=== PATIENT | female | born 1985 | race Caucasian/White ===

== ENCOUNTER 2021-06-21 17:10 | Emergency (ER) | payer OTHER ==
[~2021-06-21] VITALS: Ht 160 cm; Wt 69.8 kg
--- NOTE | 2021-06-21 17:38 | PHYS DOC ---
Past History Past Medical History: UTI Past Surgical History: No Surgical History Alcohol Use: Occasionally General Adult EDM: Chief Complaint: URINARY FREQUENCY HPI: HPI: "..I feel like I have a urinary tract infection... I do not usually get urinary tract infections..." " My mom who is a nurse said I should come in and get checked. .. out..." Patient is a 35 year old female dependent who presents with above hx of dysuria. Patient denies any history of frequent urinary tract infections. Normally healthy. No history immunosuppression. No recent travel outside the [place] area. Patient follows at [facility] for care. Patient has not had any pregnancies. Has an IUD for control. No history of STDs. Patient does give a history of allergy to Keflex and sulfa drugs. Patient normally healthy. is here for continue education. Will be a long-term assignment to [place]. Patient denies any vaginal discharge. Review of Systems: Review of Systems: Constitutional: Denies fever or chills Eyes: Denies change in visual acuity HENT: Denies nasal congestion or sore throat Respiratory: Denies cough or shortness of breath Cardiovascular: Denies chest pain or edema GI: Denies abdominal pain, nausea, vomiting, bloody stools or diarrhea : Complains of dysuria Musculoskeletal: Denies back pain or joint pain Integument: Denies rash Neurologic: Denies headache, focal weakness or sensory changes Endocrine: Denies polyuria or polydipsia Lymphatic: Denies swollen glands Psychiatric: Denies depression or anxiety Family History: Family History: Noncontributory to presentation Current Medications: Current Meds: See nursing for home meds Allergies: Allergies: Allergies Coded Allergies Type Severity Reaction Last Updated Verified Sulfa (Sulfonamide Antibiotics) Allergy Unknown hives 06/21/21 Yes cephalexin Allergy Unknown swelling 06/21/21 Yes Physical Exam: PE: Constitutional: Well developed, well nourished, no acute distress, non-toxic jogre earance. [] HENT: Normocephalic, atraumatic, bilateral external ears normal, oropharynx moist, no oral exudates, nose normal. [] Eyes: PERRLA, EOMI, conjunctiva normal, no discharge. [] Neck: Normal range of motion, no tenderness, supple, no stridor. [] Cardiovascular:Heart rate regular rhythm, no murmur [] Lungs & Thorax: Bilateral breath sounds clear to auscultation [] Abdomen: Bowel sounds normal, soft, no tenderness, no masses, no pulsatile masses. [Mild suprapubic discomfort Skin: Warm, dry, no erythema, no rash. [] Back: No tenderness, no CVA tenderness. [] Extremities: No tenderness, no cyanosis, no clubbing, ROM intact, no edema. [] Neurologic: Alert and oriented X 3, normal motor function, normal sensory function, no focal deficits noted. [] Psychologic: Affect normal, judgement normal, mood normal. [] Current Patient Data: Vital Signs: Vital Signs Date Time Temp Pulse Resp B/P (MAP) Pulse Ox O2 Delivery O2 Flow Rate FiO2 06/21/21 17:27 98.2 87 18 150/52 (84) 99 Room Air EKG: EKG: [] Radiology/Procedures: Radiology/Procedures: [] Heart Score: C/O Chest Pain: N/A Risk Factors: Risk Factors: DM, Current or recent (<one month) smoker, HTN, HLP, family history of CAD, obesity. Risk Scores: Score 0 - 3: 2.5% MACE over next 6 weeks - Discharge Home Score 4 - 6: 20.3% MACE over next 6 weeks - Admit for Clinical Observation Score 7 - 10: 72.7% MACE over next 6 weeks - Early Invasive Strategies Course & Med Decision Making: Course & Med Decision Making Pertinent Labs and Imaging studies reviewed. (See chart for details) Patient follow-up urinary culture. Patient follow-up Violeta. Patient to push fluids high vitamin C. Patient may use [id number] Pyridium for mild discomfort. Take Cipro 500 mg twice a day x 7 day. Take Diflucan 100 mg 3 day after complete Cipro. . Return if any concerns. Impression: 1. Dysuria 2. UTI [] Dragon Disclaimer: Mary Jo Disclaimer: This electronic medical record was generated, in whole or in part, using a voice recognition dictation system. Departure Departure: Referrals: PCP,NO (PCP) Scripts Fluconazole (DIFLUCAN) 100 Mg Tablet 100 MG PO DAILY for post antibiotics for 3 Days, #3 TAB Prov: SAL LONGORIA MD 06/21/21 Ciprofloxacin Hcl (CIPRO) 500 Mg Tablet 500 MG PO BID for uti for 7 Days, #14 TAB Prov: SAL LONGORIA MD 06/21/21 Mary Jo Disclaimer This chart was dictated in whole or in part using Voice Recognition software in a busy, high-work load, and often noisy Emergency Department environment. It may contain unintended and wholly unrecognized errors or omissions. SAL LONGORIA MD Jun 21, 2021 17:38
[2021-06-21] MEDS ORDERED: CIPR500T94 PO (17:55)
[2021-06-21] MEDS ORDERED: FLUC100T7 PO (17:55)
[2021-06-21 18:53] LABS: BARBITURATES NEG (NEG); BENZODIAZEPINES NEG (NEG); CANNABINOIDS NEG (NEG); COCAINE NEG (NEG); METHADONE NEG (NEG); OPIATES NEG (NEG); PHENCYCLIDINE NEG (NEG)
[2021-06-21 18:57] LABS: AMPHETAMINE/METHAMPHETAMINE NEG (NEG)
[2021-06-21 19:05] LABS: BILIRUBIN,URINE NEG (NEG); CLARITY,URINE HAZY; COLOR,URINE YELLOW; GLUCOSE,URINE NEG (NEG); NITRITE,URINE NEG (NEG); RBC,URINE OCC /HPF (0-2); UROBILINOGEN,URINE 0.2 mg/dL (0.2 mg/dL)
[2021-06-21 19:06] LABS: BACTERIA,URINE FEW /HPF (0-FEW); SQUAMOUS EPITHELIAL CELL,UR MOD /LPF
[2021-06-21] MEDS: PHENAZOPYRIDINE 200 MG TABLET. PO ONE (19:28)
[2021-06-21] MEDS: CIPROFLOXACIN HCL 500 MG TABLET PO ONE (19:29)
[2021-06-21 19:30] VITALS: BP 11/67
== END 2021-06-21 19:38 | disposition home or self-care (01) ==
LOC: ER 17:10
DX: N39.0 Urinary tract infection, site not specified (principal); Z88.2 Allergy status to sulfonamides; Z88.1 Allergy status to other antibiotic agents
CPT/HCPCS: 36415; 80307; 81001; 81025; 87086; 87491; 87591; 99283-25